=== PATIENT | female | born 1975 | race Hispanic/Latino ===

== ENCOUNTER 2017-12-28 17:55 | Emergency (ER) | payer OTHER ==
[2017-12-28 18:17] VITALS: O2SAT 100
--- NOTE | 2017-12-28 20:09 | CT ---
EXAM DESCRIPTION: Abdomen/Pelvis w/Contrast CLINICAL HISTORY: RLQ PAIN, COMPARISON: None Available TECHNIQUE: Contiguous axial images of the abdomen and pelvis were obtained after the administration of intravenous contrast followed by reconstruction images.This exam was performed according to our departmental dose-optimization program, which includes automated exposure control, adjustment of the mA and/or kV according to patient size and/or use of iterative reconstruction technique. FINDINGS: There are scattered shotty mesenteric lymph nodes. The liver, spleen, pancreas and kidneys are within normal limits. There is no hydronephrosis. The gallbladder is unremarkable. Adrenal glands are within normal limits. Aorta is normal in caliber and tapering. No significant free fluid. No free air. No bowel obstruction. There is no stranding of the mesenteric fat. The appendix appears normal. No evidence of periappendiceal inflammation. IMPRESSION: No acute intra-abdominal abnormality Electronically signed by: Ray Garcia 12/28/2017 8:08 PM CDT
--- NOTE | 2017-12-28 20:26 | ED.PDOC ---
History of Present Illness - General Chief Complaint: Abdominal Pain Stated Complaint: abdominal pain Time Seen by Provider: 12/28/17 18:37 Information Source: patient Exam Limitations: no limitations - History of Present Illness Initial Comments: THIS 42 YEAR OLD PATIENT COMES TO THE ED WITH ABDOMINAL PAIN. THIS EVIDENTLY STARTED ABOUT FIVE DAYS AGO AND THE PAIN HAS BEEN INTERMITTENT . NOW IT HAS LOCALIZED ON THE RLQ AND SHE WENT TO AN URGENT [facility]ARE [facility] AND THEN WAS TOLD TO COME HERE. OF NOTE SHE HAS HAS TWO ABDOMINAL SURGERIES. THE CIARRA ONE WAS A PARTIAL COLECTOMY FOR DIVERTICULITIS. SHE ALSO HAD A PERFORATED BOWEL. ABOUT FIVE YEARS AGO. Review of Systems - Review of Systems Constitutional: States: no symptoms reported EENTM: States: no symptoms reported Respiratory: States: no symptoms reported Cardiology: States: no symptoms reported Gastrointestinal/Abdominal: States: abdominal pain, nausea Genitourinary: States: no symptoms reported Musculoskeletal: States: no symptoms reported Skin: States: no symptoms reported Neurological: States: no symptoms reported Endocrine: States: no symptoms reported Hematologic/Lymphatic: States: no symptoms reported All other Systems: Reviewed and Negative, No Change from Baseline Past Medical History (General) - Patient Medical History Hx Gastroesophageal Reflux: Yes Surgical History: colectomy, other - Vaccination History Hx Influenza Vaccination: Yes Hx Pneumococcal Vaccination: No - Social History Hx Tobacco Use: No Hx Alcohol Use: Yes - 3-4 times weekly, socially - Triage Comment ED Triage Comment: Taking depo provera control Family Medical History - Family History Mother Family History: Unknown Physical Exam - Physical Exam General Appearance: Alert, Anxious, No apparent distress, Well Groomed, Well Hydrated, Well Nourished Eyes, Ears, Nose, Throat Exam: PERRL/EOMI, normal ENT inspection, TMs normal, pharynx normal Neck: full range of motion, supple, normal inspection Respiratory: chest non-tender, lungs clear, normal breath sounds, no respiratory distress, no accessory muscle use Cardiovascular/Chest: normal peripheral pulses, regular rate, rhythm, no edema, no gallop, no JVD, no murmur Gastrointestinal/Abdominal: normal bowel sounds, soft, no organomegaly, no pulsatile mass, distended, tenderness - ON THE RIGHT LOWER QUADRANT, hepatomegaly Rectal Exam: deferred Back Exam: normal inspection, no CVA tenderness Extremity: normal range of motion, non-tender, normal inspection Neurologic: no motor/sensory deficits, alert, normal mood/affect, oriented x 3 Skin Exam: normal color Lymphatic: no adenopathy Progress - Results/Orders Results/Orders: LAB AND IMAGING HAVE BEEN REPORTED: CBC: WBC'S OF 6.4 CMP IS NORMAL LIPASE IS [address] ABDOMEN: NO APPENDICITIS, NO OBSTRUCTION Departure - Departure Clinical Impression: Right lower quadrant abdominal pain Time of Disposition: 20:31 Disposition: Discharge to Home or Self Care Departure Forms: ED Discharge - Pt. Copy, Patient Portal Self Enrollment Prescriptions: Hyoscyamine Sulfate [Levsin] 0.125 mg PO Q6HR #20 tab Home Medications: Ambulatory Orders Hyoscyamine Sulfate [Levsin] 0.125 mg PO Q6HR #20 tab 12/28/17
[2017-12-28 21:12] VITALS: BP 111/64; TEMP 98.4
== END 2017-12-28 20:49 | disposition home or self-care (01) ==
LOC: ER 17:55
DX: R10.31 Right lower quadrant pain (principal); K21.9 Gastro-esophageal reflux disease without esophagitis